=== PATIENT | female | born 1950 | race Caucasian/White ===

== ENCOUNTER 2016-08-03 13:54 | Outpatient (CLI) | payer MEDICARE, OTHER ==
[2015-11-07 09:57] VITALS: BP 111/48
== END 2016-08-03 13:55 ==
LOC: POD 13:54
PROVIDERS: ATTEND Podiatrist
DX: B35.1 Tinea unguium (principal); M79.674 Pain in right toe(s); M79.675 Pain in left toe(s)
CPT/HCPCS: 11721; G0463

== ENCOUNTER 2016-10-23 15:28 | Outpatient (CLI) | payer MEDICARE, OTHER ==
[2015-11-07 09:57] VITALS: BP 111/48
== END 2016-10-23 15:30 ==
LOC: POD 15:28
PROVIDERS: ATTEND Podiatrist
DX: B35.1 Tinea unguium (principal); M79.674 Pain in right toe(s); M79.675 Pain in left toe(s)
CPT/HCPCS: 11721; G0463

== ENCOUNTER 2016-11-20 13:12 | Outpatient (CLI) | payer MEDICARE, OTHER ==
[2015-11-07 09:57] VITALS: BP 111/48
== END 2016-11-20 13:13 ==
LOC: CARD 13:12
PROVIDERS: ATTEND Internal Medicine Cardiovascular Disease
DX: I35.0 Nonrheumatic aortic (valve) stenosis (principal)
CPT/HCPCS: G0463

== ENCOUNTER 2017-01-18 13:01 | Outpatient (CLI) | payer MEDICARE, OTHER ==
[2015-11-07 09:57] VITALS: BP 111/48
== END 2017-01-18 13:02 ==
LOC: POD 13:01
PROVIDERS: ATTEND Podiatrist
DX: B35.1 Tinea unguium (principal); M79.674 Pain in right toe(s); M79.675 Pain in left toe(s)
CPT/HCPCS: 11721; G0463

== ENCOUNTER 2017-04-23 12:55 | Outpatient (CLI) | payer MEDICARE, OTHER ==
[2015-11-07 09:57] VITALS: BP 111/48
== END 2017-04-23 12:56 ==
LOC: POD 12:55
PROVIDERS: ATTEND Podiatrist
DX: B35.1 Tinea unguium (principal); M79.674 Pain in right toe(s); M79.675 Pain in left toe(s)
CPT/HCPCS: 11721; G0463

== ENCOUNTER 2017-08-02 12:47 | Outpatient (CLI) | payer MEDICARE, OTHER ==
[2015-11-07 09:57] VITALS: BP 111/48
== END 2017-08-02 12:50 ==
LOC: POD 12:47
PROVIDERS: ATTEND Podiatrist
DX: B35.1 Tinea unguium (principal); M79.674 Pain in right toe(s); M79.675 Pain in left toe(s)
CPT/HCPCS: 11721; G0463

== ENCOUNTER 2017-11-01 13:30 | Outpatient (CLI) | payer MEDICARE, OTHER ==
[2015-11-07 09:57] VITALS: BP 111/48
== END 2017-11-01 13:32 ==
LOC: POD 13:30
PROVIDERS: ATTEND Podiatrist
DX: B35.1 Tinea unguium (principal); M79.674 Pain in right toe(s); M79.675 Pain in left toe(s)
CPT/HCPCS: 11721; G0463

== ENCOUNTER 2017-11-27 09:12 | Outpatient (CLI) | payer MEDICARE, OTHER ==
[2015-11-07 09:57] VITALS: BP 111/48
== END 2017-11-27 09:56 ==
LOC: RAD 09:12
PROVIDERS: ATTEND Nurse Practitioner Family
DX: Z78.0 Asymptomatic menopausal state (principal)
CPT/HCPCS: 77080

== ENCOUNTER 2018-09-22 10:00 | Outpatient (CLI) | payer MEDICARE, OTHER ==
[2015-11-07 09:57] VITALS: BP 111/48
--- NOTE | 2018-09-25 09:25 | OP Clinic Progress Note ---
SUBJECTIVE: Ana Paula Best is a 68-year-old female who presented the other day in clinic for an ingrown toenail that did not have any signs of infection and she was amenable to waiting to having the procedure performed today in outpatient clinic. The patient has been applying triple antibiotic ointment and a Band-Aid daily since we last saw her on Saturday. The patient denies any changes in the toe condition since then. The patient presents with her caregiver who agrees with the same. The patient does not admit to any fevers, chills, nausea, vomiting, shortness of breath or chest pain at this time. OBJECTIVE: Vitals: Temperature 37.7 degrees Celsius, heart rate 87, blood pressure 131/71. Vascular: 2+ DP pulse, right foot, and 1+ PT pulse, right foot. This was more difficult to feel today than it was on Saturday. Capillary refill time is less than 3 seconds to the toes of the right foot. There is mild edema noted on the lateral border of the right hallux today still. Dermatologic: There is mild irritation noted with a small granuloma formation on the lateral edge of the right great toenail border. There is some eschar there, however, there is no erythema or purulence noted. There is no malodor noted. Musculoskeletal: There is pain on palpation noted along the lateral border of the right great toenail. There are no other gross abnormalities noted, right foot. Neurologic: Light touch sensation is intact to the toes, right foot. ASSESSMENT AND PLAN: 1. Onychocryptosis, L60.0. The risks and benefits of the procedure for a partial nail avulsion of the lateral border of the right great toenail were discussed with the patient that include but are not limited to bleeding and infection and nonhealing due to blood flow. I believe the patients blood flow is sufficient to heal a small procedure such as this and that she needs to have the procedure done regardless due to lots of pain, discomfort and concern for development of infection in the future if this is not treated. The patient understood the risks and benefits and the consent was given both verbally and by written consent which was placed in the chart. PROCEDURE #1: Lateral nail border of the hallux partial nail avulsion (temporary). An alcohol swab was utilized to clean the patients right great toe base and 6 mL of a 1:1 mix of 2% lidocaine plain and 0.5% Marcain plain were injected into the right hallux. Anesthesia seemed to have been obtained and Betadine was used as a good Betadine prep to clean the toe. At this time a hemostat was used to loosen the toe lateral nail edge from its surrounding attachments and the patient seemed to still be having pain so 2 more milliliters of that same 1:1 mixture were injected and the patient seemed to be doing much better at that time. The patient had no pain going forward and the lateral border of the right great toenail was avulsed with a hemostat and nail splitters. It was checked to make sure there was no remaining nail in the pocket which was clear. The site was rinsed with a copious amount of normal saline and then hemostasis obtained with pressure. There was appropriate bleeding which again hemostasis of that bleeding was obtained with pressure. Dressings were then applied consisting of triple antibiotic ointment, 4x4 gauze, 3-inch Edgar and 1-inch Coban beginning on the toe and extending onto the distal forefoot to help hold it on the toe. The patient held verbal and written instructions given and we will see the patient back in 1-1/2 weeks on in outpatient clinic for follow-up. The patient, nor the caregiver had any further questions and we will see them next week. Curtis MaganaP.M. (Dictated/Not Signed) Taiwo Job#: [id number] MTDD
== END 2018-09-22 10:03 ==
LOC: POD 10:00
PROVIDERS: ATTEND Podiatrist Foot & Ankle Surgery
DX: L60.0 Ingrowing nail (principal)
CPT/HCPCS: 11730; J2001; J3490; A4554

== ENCOUNTER 2018-09-26 10:19 | Outpatient (CLI) | payer MEDICARE, OTHER ==
[2015-11-07 09:57] VITALS: BP 111/48
== END 2018-09-26 10:30 ==
LOC: LAB 10:19
PROVIDERS: ATTEND Nurse Practitioner Family
DX: R94.5 Abnormal results of liver function studies (principal); E83.119 Hemochromatosis, unspecified
CPT/HCPCS: 36415; 80074; 80076; 82977

== ENCOUNTER 2018-10-02 11:38 | Outpatient (CLI) | payer MEDICARE, OTHER ==
[2015-11-07 09:57] VITALS: BP 111/48
--- NOTE | 2018-10-06 18:38 | OP Clinic Progress Note ---
SUBJECTIVE: Ana Paula Best is a 68-year-old female who presents today in clinic for follow-up of a lateral nail border of the right great toenail. This was performed on 09/22/18. The patient has been having dressing changes appropriately and the patient has no concerns at this time. The caregiver also has no concerns at this time. The patient does not admit to any fevers, chills, nausea, vomiting, shortness of breath or chest pain at this time. OBJECTIVE: Vitals: Temperature 98.9 degrees Fahrenheit, heart rate 86, respiration rate 14, blood pressure 128/68, and oxygen saturation is 92% on room air. Vascular: 2+ DP pulse, right foot, and 1+ PT pulse, right foot. Capillary refill time is less than 3 seconds to the toes of the right foot. There is no edema noted on the lateral border of the right hallux today. Dermatologic: There is no irritation noted and no granuloma formation, and the lateral toenail border of the right great toe is appearing completely healed. There was mild eschar formation on the edge of the skin which was easy to remove with a #15 blade and the skin is looking completely healed without any raw area. There is no erythema, purulence, malodor or any signs of open wound or infection. Musculoskeletal: There is no pain on palpation noted along the lateral border of the right great toenail. There are no other gross abnormalities noted, right foot. Neurologic: Light touch sensation is intact to the toes, right foot. ASSESSMENT AND PLAN: 1. Post procedure follow-up. 2. History of onychocryptosis, right great toenail, lateral border. I believe the patient has healed this completely and I encouraged her that they do just a plain Band-Aid daily for about 4 more days and then they should be good to go to stop. The patient and the caregiver had no further questions or concerns and plan to follow up in 2 or 3 months for the regular nail care over at the health clinic next door. Return to the clinic in 2-3 months for regular nail care appointment and an overall foot check. Curtis MaganaPJessica (Dictated/Not Signed) Taiwo Job#: [id number] MTDJohann
== END 2018-10-02 11:40 ==
LOC: POD 11:38
PROVIDERS: ATTEND Podiatrist Foot & Ankle Surgery
DX: L60.0 Ingrowing nail (principal); Z09 Encounter for follow-up examination after completed treatment for conditions other than malignant neoplasm

== ENCOUNTER 2018-11-06 08:52 | Outpatient (CLI) | payer MEDICARE, OTHER ==
[2015-11-07 09:57] VITALS: BP 111/48
[2018-11-06 09:43] LABS: eGFR (Non-African) > 60
== END 2018-11-06 08:53 ==
LOC: LAB 08:52
PROVIDERS: ATTEND Nurse Practitioner Family
DX: R74.8 Abnormal levels of other serum enzymes (principal); R94.5 Abnormal results of liver function studies
CPT/HCPCS: 36415; 80053; 82977

== ENCOUNTER 2019-01-02 12:18 | Outpatient (CLI) | payer MEDICARE, OTHER ==
[2015-11-07 09:57] VITALS: BP 111/48
[2019-01-02 14:14] LABS: eGFR (Non-African) > 60
== END 2019-01-02 12:20 ==
LOC: LAB 12:18
PROVIDERS: ATTEND Nurse Practitioner Family
DX: R94.5 Abnormal results of liver function studies (principal)
CPT/HCPCS: 36415; 80053; 82977

== ENCOUNTER 2019-04-07 14:31 | Outpatient (CLI) | payer MEDICARE, OTHER ==
[2015-11-07 09:57] VITALS: BP 111/48
[2019-04-20 13:42] LABS: BASOPHILS % 0.3 % (0.0-1.5); NEUTROPHILS # 2.5 # k/uL (1.4-7.7); eGFR (Non-African) > 60
== END 2019-04-07 14:40 ==
LOC: LAB 14:31
PROVIDERS: ATTEND Nurse Practitioner Family
DX: E03.9 Hypothyroidism, unspecified (principal); D75.89 Other specified diseases of blood and blood-forming organs
CPT/HCPCS: 36415; 80053; 82607; 82746; 84443; 85025